=== PATIENT | male | born 1965 | race Caucasian/White ===

== ENCOUNTER 2016-12-22 17:48 | Emergency (ER) | payer OTHER ==
--- NOTE | ~2016-12-22 | ER ---
PATIENT'S NAME: ANNIA JETER [facility] AGE: 51 Y [address] ROOM: [place] [id number] LOCATION: [facility] ADMIT DATE: 12/22/2016 ER/Outpatient Report DISCHARGE DATE: 12/22/2016 FAMILY PHYSICIAN: PHYSICIAN, NO ATTENDING PHYSICIAN: Joelle Escamilla Time of Arrival: Admission date and time documented on the medical record. Time of Evaluation: I saw the patient at 1810 hours when I came on shift. CHIEF COMPLAINT: High blood pressure. HISTORY OF PRESENT ILLNESS: The patient is a 51-year-old male, who came in with a headache and not feeling well. He had some lightheaded/dizziness accompanying the headache. When he feels this way, he knows his blood pressure is causing it. He has been on blood pressure medication in the past, but has not for quite some time. He was on Bystolic for a period of time. Denies any history of coronary artery disease, valvular heart disease, peripheral vascular disease, kidney disease, liver disease, or diabetes. No history of neuro changes, psych issues, or endocrine problems. No recent coughs, colds, flus, fever, chills, or sweats. No syncope or near syncope. No headache or eyes, ears, nose, throat, neck, or spine pain. No chest pain or shortness of breath. No abdominal pain, nausea, vomiting, or diarrhea. No urinary complaints. No joint or muscle swelling, redness, or pain. No skin eruptions or rash. HOME MEDICATIONS: See attached medication list. ALLERGIES: NONE. SOCIAL HISTORY: The patient smokes a pack of cigarettes per day. Does use marijuana. SIGNIFICANT PAST MEDICAL HISTORY: Hypertension, urinary retention, benign prostatic hypertrophy, tobacco abuse, and marijuana abuse. OPERATIONS: Appendectomy, right arm surgery, and cardiac catheterization x2. REVIEW OF SYSTEMS: All systems reviewed by me are negative with the exception of those discussed in the history of present illness. PATIENT'S NAME: ANNIA JETER [facility] AGE: 51 Y [address] ROOM: [place], [place] [address] LOCATION: [facility] ADMIT DATE: 12/22/2016 ER/Outpatient Report DISCHARGE DATE: 12/22/2016 FAMILY PHYSICIAN: PHYSICIAN, NO ATTENDING PHYSICIAN: Joelle Escamilla PHYSICAL EXAMINATION: VITAL SIGNS: Temperature 97.1, tympanic; pulse 89; respirations 20; blood pressure 183/110; and O2 saturation on room air is 98%. HEAD: Normocephalic. EYES: Extraocular muscles intact. PERRL. Fundi benign. EARS: Clear TMs bilaterally. NOSE AND THROAT: Clear. Mucous membranes moist. Teeth, jaw intact. NECK: No nuchal rigidity. No thyromegaly or cervical adenopathy. No carotid bruits. No tenderness. Full range of motion. SPINE: Negative. LUNGS: Clear. Good air flow. No rales, rhonchi, or wheezes. HEART: Regular. Pulses are palpable. ABDOMEN: Soft, nondistended, nontender. Good bowel tones. No organomegaly or abnormal mass palpable. EXTREMITIES: No peripheral edema, cyanosis, clubbing, or deformity. NEUROVASCULAR: Intact. SKIN: Clear. No skin eruptions or rash. IMAGING DATA: Chest x-ray shows no acute infiltrate or changes. We will review x-ray with radiologist. EKG showed no acute ST elevation, ischemic change, or arrhythmia. LABORATORY DATA: White count was 6800, differential 63 segs, 26 lymphs, 8 monos, 3 eos, 1 baso; hemoglobin 15 with hematocrit 44.6; platelet count was 231,000. PTT was 44, protime was 9.8, and INR 0.93. Venous pH was 7.36. CMS was normal. Troponin was less than 0.4, CK-MB was 6.5, CPK was 234. Magnesium 2.4. TSH was 0.474. ProBNP was less than 30. Urinalysis showed 5 to 10 whites, 0 to 2 reds, 0 to 2 epithelial cells, few bacteria, 1+ mucus per high-powered field, negative nitrites on dipstick. IMPRESSION: 1. Hypertension. 2. Benign prostatic hypertrophy. PLAN: The patient was discharged from the emergency department. Observation. Activity as tolerated. Fluids and diet as tolerated. Continue present home medications and care. Lisinopril/hydrochlorothiazide 10/12.5 mg 1 daily. Follow up with personal physician as scheduled in 2 weeks. Discussion ensued with the patient concerning my findings and recommendations, he understands. PATIENT'S NAME: ANNIA JETER [facility] AGE: 51 Y [address] ROOM: [place], [place] [address] LOCATION: [facility] ADMIT DATE: 12/22/2016 ER/Outpatient Report DISCHARGE DATE: 12/22/2016 FAMILY PHYSICIAN: BRIDGER PALENCIA ATTENDING PHYSICIAN: Joelle Escamilla MD BONILLA LU/domenico /[id number] d: 12/22/16 2354 t: 12/23/16 0247, OUTPATIENT REPORT
[2016-12-22 18:33] LABS: BASOPHIL # 0.1 K/uL (0.0-0.2); BASOPHIL % 0.9 %; EOSINOPHIL # 0.2 K/uL (0.0-0.5); EOSINOPHIL % 2.8 %; HEMATOCRIT 44.6 % (37.0-53.0); IMMATURE GRANULOCYTE % 0.1 %; LYMPHOCYTE # 1.8 K/uL (0.8-4.0); LYMPHOCYTE % 26.2 %; MCHC 33.6 gm/dL (32.0-36.5); MCV 83.4 fl (83.0-98.0); MONOCYTE # 0.5 K/uL (0.0-1.0); MONOCYTE % 7.5 %; NEUTROPHIL # (ANC) 4.3 K/uL (1.4-9.0); NEUTROPHIL % 62.5 %; NRBC % 0 /100WBC (0-0.00); PLATELET COUNT 231 K/uL (150-450); RBC 5.35 M/uL (4.00-6.00); RDW-CV 12.3 % (11.9-14.6); WBC 6.8 K/uL (4.0-11.0)
[2016-12-22 18:42] LABS: INR - (THERAPEUTIC) 0.93 (0.92-1.07); PROTIME 9.8 SECONDS (9.8-11.4); PTT 44 SECONDS (25-32)
[2016-12-22 18:55] LABS: ALBUMIN 3.7 gm/dL (3.5-5.0); ALK PHOS 99 IU/L (33-138); ALT 29 IU/L (12-78); ANION GAP 11.9 (10.0-19.0); AST 17 IU/L (10-40); BLOOD UREA NITROGEN 17 mg/dL (6-24); CALCIUM 8.7 mg/dL (8.5-10.5); CHLORIDE 105 mMol/L (96-110); CO2 28 mMol/L (22-32); CPK 234 IU/L (35-332); CREATININE 1.2 mg/dL (0.6-1.3); ESTIMATED GFR (MDRD EQUATION) > 60; MAGNESIUM 2.4 mg/dL (1.8-2.6); POTASSIUM 3.9 mMol/L (3.7-5.1); SODIUM 141 mMol/L (135-145); TOTAL BILIRUBIN 0.2 mg/dL (0.0-1.5); TOTAL PROTEIN 7.1 g/dL (6.0-8.4)
[2016-12-22 19:03] LABS: BILIRUBIN URINE NEGATIVE (NEGATIVE); BLOOD URINE 10 /UL (NEGATIVE); COLOR URINE YELLOW (YELLOW); GLUCOSE URINE NEGATIVE (NEGATIVE); KETONE URINE NEGATIVE (NEGATIVE); LEUKOCYTES URINE 100 /UL (NEGATIVE); NITRITE URINE NEGATIVE (NEGATIVE); PROTEIN URINE 15 mg/dL (NEGATIVE); TURBIDITY URINE CLEAR (CLEAR); UROBILINOGEN URINE NORMAL (NORMAL)
[2016-12-22 19:11] LABS: BACTERIA URINE FEW (NEGATIVE); EPITHELIAL URINE 0-2 #/HPF (NEGATIVE); RBC URINE 0-2 #/HPF (NEGATIVE)
[2016-12-22 19:12] LABS: MUCUS URINE 1+ (NEGATIVE)
== END 2016-12-22 19:43 | disposition disaster alternative care site (69) ==
LOC: GMED 17:48
PROVIDERS: Emergency Medicine
DX: I10 Essential (primary) hypertension (principal); N40.0 Benign prostatic hyperplasia without lower urinary tract symptoms; F17.210 Nicotine dependence, cigarettes, uncomplicated; Z90.49 Acquired absence of other specified parts of digestive tract